=== PATIENT | female | born 1980 | race American Indian/Alaskan Native ===

== ENCOUNTER 2017-05-25 23:26 | Emergency (ER) | payer SELFPAY ==
--- NOTE | 2017-05-26 02:31 | Emergency Department Report ---
HPI - General Chief Complaint: Dental/Oral Time Seen by Provider: 05/26/17 02:30 - HPI HPI: Patient here reported that she's having toothache to her left lower tooth where when she was eating something her tooth broke off and this started one day ago. Denies any fever or chills but report that she is having pain to that side at 9 out of 10. Said the pain is achy and worse with eating or talking. She took Motrin but it didn't help her pain. Denies any difficulty swallowing, coughing , shortness of breath or chest pain. She does not have access to a dentist due to lack of insurance. Pressure is 154/104 and patient denies any history of high blood pressure or any medical problems ED Past Medical Hx - Past Medical History Previous Medical History?: No - Surgical History Past Surgical History?: Yes Additional Surgical History: foot - Family History Family history: hypertension - Social History Smoking Status: Never Smoker Substance Use Type: None Other Social History: she is - Medications Home Medications: Home Medications Medication Instructions Recorded Confirmed Last Taken Type Acetaminophen/Codeine [Tylenol 1 tab PO Q6H PRN #12 tab 05/26/17 Unknown Rx /Codeine # 3 tab] Amoxicillin [Amoxicillin TAB] 875 mg PO BID #20 tablet 05/26/17 Unknown Rx Ibuprofen [Motrin] 600 mg PO Q8H PRN #15 tablet 05/26/17 Unknown Rx ED Review of Systems ROS: Stated complaint: TOOTHACHE Other details as noted in HPI Comment: All other systems reviewed and negative Constitutional: no symptoms reported Eyes: denies: eye pain, eye discharge, vision change ENT: dental pain. denies: ear pain, throat pain, epistaxis, congestion Respiratory: no symptoms reported Cardiovascular: denies: chest pain, palpitations, edema, syncope Gastrointestinal: denies: abdominal pain, nausea, vomiting Musculoskeletal: denies: back pain, joint swelling, arthralgia, myalgia Skin: denies: rash Neurological: denies: headache, abnormal gait, vertigo Physical Exam - Physical Exam Vital Signs: Vital Signs 05/26/17 01:13 Temperature 98.9 F Pulse Rate 84 Respiratory 16 Rate Blood Pressure 157/104 O2 Sat by Pulse 99 Oximetry Manual blood pressure is 150/92 General: This is a 37-year-old female well-nourished well-developed in no acute distress Physical Exam: Head: Normocephalic, atraumatic, no abrasion, no bruising and no contusion. Eyes: Biateral pupils equal and reactive to light, bilateral EOM intact.. Bilateral conjunctival and sclera without injection, normal accommodation. Ears: Bilateral EAC without any redness drainage or swelling, lateral TM pearly pat bilateral track this is normal and nontender. No auricular abnormality Mouth: No pharyngeal exudate or erythema. Uvula is midline and oral airways patent. Moist and tongue is normal. Patient with multiple dental caries and gingivitis. She has no cellulitic or indurated areas. Did fracture to to left are 18 and 19. Positive dental tenderness around #18 and 19. Neck: Supple, no adenopathy, full range of motion and no C-spine tenderness. No swelling or tracheal deviation Cardiovascular: S1, S2. Regular rate and rhythm. No murmur. Capillary refill is less then 3 seconds.Blood Pressure Is elevated and patient is asymptomatic Lungs: Clear to auscultate bilaterally. No rhonchi, wheezes or rales. No chest wall tenderness MSK: Strength 5/5 in all extremities. No joint deformity or crepitus. Normal inspection. Full range of motion to all extremities Extremities: No clubbing, cyanosis or edema. +2 pulses. No neurovascular compromise Skin: Clean, dry and intact. No rash or lesions. Psych: Normal mood and behavior. ED Course Vital Signs 05/26/17 01:13 Temperature 98.9 F Pulse Rate 84 Respiratory 16 Rate Blood Pressure 157/104 O2 Sat by Pulse 99 Oximetry Manual blood pressure is 150/92 - Reevaluation(s) Reevaluation #1: 05/26/17 02:56 given [place] 5/325 2 tablets in emergency room for toothache 05/26/17 02:56 ED Medical Decision Making - Medical Decision Making ED course: In here complaining in broken tooth and was found to have a fractured tooth at tooth #18 and 19, gingivitis and multiple dental caries. That have access to a dentist due to lack of insurance. Patient given [place] 5/ 325 2 tablets in the emergency room. Blood Pressure was also elevated she denies any history of high blood pressure. I discussed the patient that she needs to keep a lot of her blood pressure and take to primary care physician for evaluation and treatment. She does not have a primary care doctor or a dentist. Told her I will refer her to [facility] for primary care visit and for dental visit. I discussed with her that she'll pay a sliding scale if she does not have insurance. I told her she needs to call tomorrow morning to schedule an appointment for visit. She voiced understanding of diagnosis and treatment plan and discharged home with her in stable condition. Assessment/plan 1. Toothache 2. Closed Fractured tooth 3. Dental caries 4. Gingivitis 5. Elevated blood pressure without history of high blood pressure Pt discharged home with her family with prescription for Tylenol 3, Motrin and amoxicillin. She was given instruction to follow up at [facility] for monitoring of her elevated blood pressure and also [facility] for possible tooth extraction and dental care. Critical care attestation.: If time is entered above; I have spent that time in minutes in the direct care of this critically ill patient, excluding procedure time. ED Disposition Clinical Impression: Dental caries, Toothache, Gingivitis, Elevated blood pressure reading without diagnosis of hypertension Fractured tooth Qualifiers: Encounter type: initial encounter Fracture type: closed Qualified Code(s): S02.5XXA - Fracture of tooth (traumatic), initial encounter for closed fracture Disposition: TO HOME OR SELFCARE Is pt being admited?: No Does the pt Need Aspirin: No Condition: Stable Instructions: Acute dental trauma (ED), Toothache (ED), Dental Caries (ED), Gingivitis (ED), Heart Healthy Diet (ED), Hypertension (ED), DASH Eating Plan ( ED) Additional Instructions: keep a log a few blood pressure daily and take to primary care visit with here for evaluation Take antibiotics as prescribed We'll up at [facility] dental clinic for management of dental caries, toothache and fractured tooth. Also inflamed gums. All of the [facility] to manage medical problem and to follow- up with blood pressure Please do not drive or operate heavy machinery while taking Tylenol No. 3 as this medication will cause drowsiness Prescriptions: Acetaminophen/Codeine [Tylenol /Codeine # 3 tab] 1 tab PO Q6H PRN #12 tab PRN Reason: Toothache Amoxicillin [Amoxicillin TAB] 875 mg PO BID #20 tablet Ibuprofen [Motrin] 600 mg PO Q8H PRN #15 tablet PRN Reason: Pain Referrals: [facility] [Outside] - 05/27/17 [facility] [Outside] - 05/27/17 Forms: Work/School Release Form(ED), Accompanied Note
[2017-05-26] MEDS ORDERED: NORCO 5/325 PO ONE (02:48)
[2017-05-26 03:19] VITALS: BP 159/99
== END 2017-05-26 03:19 | disposition home or self-care (01) ==
LOC: ED 23:26
DX: S02.5XXA Fracture of tooth (traumatic), initial encounter for closed fracture (principal); K02.9 Dental caries, unspecified; X58.XXXA Exposure to other specified factors, initial encounter; Y93.89 Activity, other specified; Y92.89 Other specified places as the place of occurrence of the external cause; Y99.8 Other external cause status
CPT/HCPCS: 99282